=== PATIENT | male | born 1990 | race American Indian/Alaskan Native ===

== ENCOUNTER 2016-09-17 15:35 | Emergency (ER) | payer BC, OTHER ==
[2016-09-17] MEDS: DECADRON IM ONE (18:07)
[2016-09-17] MEDS: TORADOL IM ONE (18:08)
--- NOTE | 2016-09-17 18:53 | Emergency Department Report ---
Entered by JAELYN SOSA, acting as scribe for DANYA RUIZ PA. ED Rash HPI - HPI Chief Complaint: Skin Rash Stated Complaint: ABD PAIN/RASH Time Seen by Provider: 09/17/16 17:02 Duration: 2 Days Location: Abdomen (right side of abdomen that radiates to right flank at rash site), Other Suspected Cause: Unknown Rash Symptoms: Yes Blistering (painful rash), No Itching, No Facial Swelling, No Tongue/Oral Swelling, No Breathing Difficulties, No Choking Sensation, No Wheezing/Dyspnea, No Peeling, No Fever, No Lightheaded, No Malaise, No Myalgias Severity: moderate (6/10) Other History: 26 y/o male with a PMHx of eczema presents to the ED c/o blister- like rash on right side of abdomen that radiates to right flank that began 2 days ago. Patient states he had pain first to the affected areas before the onset of the rash. Rates associated pain a 6/10 in severity, which he describes as burninng and sharp in quality. Aggravated with movement and alleviated with nothing. Denies fever, chills, cough, nausea, vomiting, diarrhea, chest pain, and SOB. Denies having unprotected sex recently. Notes a PMHx of chicken pox. Took Motrin with some relief. NKDA. ED Review of Systems ROS: Stated complaint: ABD PAIN/RASH Other details as noted in HPI Comment: All other systems reviewed and negative Constitutional: denies: chills, diaphoresis, fever, weakness Eyes: denies: eye pain, eye discharge, vision change ENT: denies: ear pain, throat pain Respiratory: denies: cough, orthopnea, shortness of breath, SOB with exertion, SOB at rest, stridor, wheezing Cardiovascular: denies: chest pain, palpitations, dyspnea on exertion, orthopnea , edema, syncope, paroxysmal nocturnal dyspnea Endocrine: no symptoms reported Gastrointestinal: denies: abdominal pain, nausea, vomiting, diarrhea Musculoskeletal: denies: back pain, joint swelling, arthralgia, myalgia Skin: rash (right side of abdomen that radiates to right flank painful). denies : lesions, pruritus Neurological: denies: headache, weakness, numbness, paresthesias ED Past Medical Hx - Past Medical History Previous Medical History?: Yes Hx Asthma: Yes Additional medical history: eczema, - Surgical History Past Surgical History?: Yes Hx Appendectomy: Yes - Family History Family history: no significant - Social History Smoking Status: Current Some Day Smoker Substance Use Type: Alcohol Other Social History: single - Medications Home Medications: Home Medications Medication Instructions Recorded Confirmed Last Taken Type Acetaminophen/Codeine [Tylenol 1 tab PO Q6H PRN #12 tab 09/17/16 Unknown Rx /Codeine # 3 tab] Ibuprofen [Motrin] 600 mg PO Q8H PRN #15 tablet 09/17/16 Unknown Rx Valacyclovir HCl [Valtrex] 1,000 mg PO TID #21 tablet 09/17/16 Unknown Rx Rash Exam - Exam General: Vital signs noted. General: well nourished, well developed, 26 year old male in no acute distress and nontoxic in appearance HEENT: No Periorbital Edema, No Conjuctival Injection, No Chemosis, No Perioral Edema, No Tongue Edema, No Uvular Edema, No Compromised Airway, No Drooling Lungs: Yes Good Air Exchange (Clear to auscultation bilaterally. Normal work of breathing. No use of accessory muscles), No Wheezes, No Ronchi, No Stridor, No Cough, No Labored Respirations, No Retractions, No Use of Accessory Muscles, No Other Abnormal Lung Sounds Heart: Yes Regular (S1-S2, regular rate, regular rhythm), No Murmur Skin: Yes Tenderness (to affected area on right abdomen and rigth low back at paraspinal area.), Yes Erythema, Yes Other (vesicular rash on mid right abdomen and right mid lumbar paraspinal area ), No Urticarial Rash, No Maculopapular Rash, No Morbilliform rash, No Bulla(e), No Excoriations, No Weeping, No Edema, No Encrustations Other: Positive: Abdomen Normal (Soft, nontender to palpation in all quadrants, normal bowel sounds in all quadrants), Neurologic Normal, Musculoskeletal Normal (No CCE. +2 pulses. No neurovascular compromise) ED Course Vital Signs 09/17/16 16:45 Temperature 98.9 F Pulse Rate 77 Respiratory 17 Rate Blood Pressure 135/82 O2 Sat by Pulse 100 Oximetry - Reevaluation(s) Reevaluation #1: 09/17/16 18:41 She given Decadron 60 mg by mouth and Toradol 60 mg IM in emergency room for shingles. ED Medical Decision Making - Medical Decision Making ESTRELLA course:Pt report to emergency room report that he has rash to his right abdomen and right lower back that is painful and 6 out of 10. He said he started feeling pain and then a day later the rash appears. Denies any nausea or vomiting or fever or chills. Patient had chickenpox vaccine in the past and he said he does not have any medical problem away from asthma and eczema. He denies being immunocompromised. I discussed the patient that he has shingles and will be treated with antiviral medication. He voices understanding and is diagnosis and treatment plan. So discussed with him that he will need to have STD testing to include HIV to rule out immunocompromise diseases. Patient states that he is not currently sexually active but he has been in the past. Patient given Toradol 60 mg IM and Decadron 60 mg by mouth in emergency room. Patient discharged home with prescription for valacyclovir, Motrin and Tylenol 3. Patient does have a primary care physician so I discussed with him that he needs to follow-up at his primary care physician on Tuesday and he should avoid being around people and babies/elderly. Critical care attestation.: If time is entered above; I have spent that time in minutes in the direct care of this critically ill patient, excluding procedure time. ED Disposition Clinical Impression: Acute pain Shingles outbreak Qualifiers: Herpes zoster complications: without complications Qualified Code(s): B02.9 - Zoster without complications Disposition: DC-01 TO HOME OR SELFCARE Is pt being admited?: No Does the pt Need Aspirin: No Condition: Stable Instructions: Herpes Zoster (ED) Additional Instructions: Please avoid being around people that are , children less than 8 years old and elderly as this rash is very contagious and these age groups has low immune system Please practice good hand eye chain You are considered contagious until rash dries up Please go to [facility] on Tuesday or as they do free HIV testing. Please take medication as prescribed Do not take Tylenol No. 3 [address] driving or operating heavy machinery as this medication will cause drowsiness Prescriptions: Acetaminophen/Codeine [Tylenol /Codeine # 3 tab] 1 tab PO Q6H PRN #12 tab PRN Reason: Pain Ibuprofen [Motrin] 600 mg PO Q8H PRN #15 tablet PRN Reason: Pain Valacyclovir HCl [Valtrex] 1,000 mg PO TID #21 tablet Referrals: PRIMARY CARE, [Primary Care Provider] - 09/20/16 Forms: Work/School Release Form(ED) This documentation as recorded by the SHEILA carpenter JASMINE,accurately reflects the service I personally performed and the decisions made by ,DANYA RUIZ PA.
[2016-09-17 19:54] VITALS: BP 129/79
== END 2016-09-17 19:25 | disposition home or self-care (01) ==
LOC: ED 15:35
DX: B02.9 Zoster without complications (principal); R10.9 Unspecified abdominal pain; J45.909 Unspecified asthma, uncomplicated
CPT/HCPCS: 96372; 99282; J1100; J1885

== ENCOUNTER 2019-04-07 07:53 | Inpatient (IN) | payer BC ==
[2019-04-07] MEDS ORDERED: SODIUM CHLORIDE 0.9% 1000 ML 1,000 ML IV ONE (08:16)
[2019-04-07] MEDS ORDERED: PANTOPRAZOLE 40 MG INJ IV ONE (08:18)
--- NOTE | 2019-04-07 08:23 | Emergency Department Report ---
ED General Adult HPI - General Chief complaint: Abdominal Pain Stated complaint: PELIVIC PAIN/RECTAL BLEEDING Time Seen by Provider: 04/07/19 08:07 Source: patient Mode of arrival: Ambulatory Limitations: No Limitations - History of Present Illness Initial comments: This is a 29-year-old man who has a history of rectal carcinoma. He states that he had hemorrhoid surgery and they detected "cancer cells". He states he had another surgical procedure but he does not have a colostomy. After that, he received chemotherapy last treatment a week ago. He received radiation therapy with his last treatment yesterday. Patient states that he has passed "spots of blood" this morning. He felt weak like he might pass out earlier this morning. He does not specifically report fever or chills. He does have some rectal pain. I do not see any treatment here for rectal carcinoma in the EMR. Apparently the patient has been getting his treatment elsewhere. The patient denies ever receiving a transfusion of blood. On further assessment, the patient now admits that he is HIV positive. He also states that he was placed on a medication that starts with [place]. I am guessing this could be fluconazole. He states that he is being treated for a "infection". -: Gradual Location: abdomen (Rectal pain) Associated Symptoms: other (Hematochezia) - Related Data Previous Rx's Medication Instructions Recorded Last Taken Type Acetaminophen/Codeine [Tylenol 1 tab PO Q6H PRN #12 tab 09/17/16 Unknown Rx /Codeine # 3 tab] Ibuprofen [Motrin] 600 mg PO Q8H PRN #15 tablet 09/17/16 Unknown Rx Valacyclovir HCl [Valtrex] 1,000 mg PO TID #21 tablet 09/17/16 Unknown Rx ALBUTEROL Inhaler(NF) [VENTOLIN 1 puff IH Q4-6H PRN #1 inha 12/28/17 Unknown Rx Inhaler(NF)] Prednisone [predniSONE 10 mg 10 mg PO .TAPER #1 tab.ds.pk 12/28/17 Unknown Rx (6-Day Pack, 21 Tabs)] Allergies Allergy/AdvReac Type Severity Reaction Status Date / Time No Known Allergies Allergy Verified 09/17/16 16:43 ED Review of Systems ROS: Stated complaint: PELIVIC PAIN/RECTAL BLEEDING Other details as noted in HPI Constitutional: weakness. denies: chills, fever Eyes: denies: eye pain, eye discharge, vision change ENT: denies: ear pain, throat pain Respiratory: denies: cough, shortness of breath, wheezing Cardiovascular: denies: chest pain, palpitations Endocrine: no symptoms reported Gastrointestinal: hematochezia. denies: abdominal pain, nausea, diarrhea Genitourinary: denies: urgency, dysuria Musculoskeletal: denies: back pain, joint swelling, arthralgia Skin: denies: rash, lesions Neurological: denies: headache, weakness, paresthesias Psychiatric: denies: anxiety, depression Hematological/Lymphatic: denies: easy bleeding, easy bruising ED Past Medical Hx - Past Medical History Previous Medical History?: Yes Hx Asthma: Yes Additional medical history: rectal cancer - Surgical History Past Surgical History?: Yes Hx Appendectomy: Yes - Social History Smoking Status: Current Every Day Smoker Substance Use Type: None - Medications Home Medications: Home Medications Medication Instructions Recorded Confirmed Last Taken Type Acetaminophen/Codeine [Tylenol 1 tab PO Q6H PRN #12 tab 09/17/16 Unknown Rx /Codeine # 3 tab] Ibuprofen [Motrin] 600 mg PO Q8H PRN #15 tablet 09/17/16 Unknown Rx Valacyclovir HCl [Valtrex] 1,000 mg PO TID #21 tablet 09/17/16 Unknown Rx ALBUTEROL Inhaler(NF) [VENTOLIN 1 puff IH Q4-6H PRN #1 inha 12/28/17 Unknown Rx Inhaler(NF)] Prednisone [predniSONE 10 mg 10 mg PO .TAPER #1 tab.ds.pk 12/28/17 Unknown Rx (6-Day Pack, 21 Tabs)] ED Physical Exam - General Limitations: No Limitations General appearance: alert, other (Appears uncomfortable) - Head Head exam: Present: atraumatic, normocephalic - Eye Eye exam: Present: normal appearance. Absent: scleral icterus - ENT ENT exam: Present: mucous membranes moist - Neck Neck exam: Present: normal inspection - Respiratory Respiratory exam: Present: normal lung sounds bilaterally. Absent: respiratory distress - Cardiovascular Cardiovascular Exam: Present: regular rate, normal rhythm. Absent: systolic murmur, diastolic murmur, rubs, gallop - GI/Abdominal GI/Abdominal exam: Present: soft, normal bowel sounds. Absent: distended, tenderness, guarding, rebound, rigid - Rectal Rectal exam: Present: other (The patient has extensive breakdown in the perirectal and gluteal fold region with epidermal maceration. Examination of the anus was impossible secondary to pain. There was no evidence of any active bleeding. There does appear to be discharge.) - Extremities Exam Extremities exam: Present: normal inspection - Back Exam Back exam: Present: normal inspection - Neurological Exam Neurological exam: Present: alert, oriented X3, CN II-XII intact. Absent: motor sensory deficit - Psychiatric Psychiatric exam: Present: normal affect, normal mood - Skin Skin exam: Present: warm, dry, intact, normal color. Absent: rash ED Course Vital Signs 04/07/19 04/07/19 04/07/19 07:59 08:01 08:22 Temperature 97.7 F 98.1 F Pulse Rate 122 H 119 H Respiratory 18 18 Rate Blood Pressure 132/82 Blood Pressure 132/82 [Right] O2 Sat by Pulse 98 98 99 Oximetry 04/07/19 04/07/19 04/07/19 09:01 09:13 09:15 Temperature 98.4 F Pulse Rate 109 H 103 H Respiratory 21 12 Rate Blood Pressure 134/91 134/91 Blood Pressure [Right] O2 Sat by Pulse 98 100 Oximetry 04/07/19 04/07/19 10:30 12:20 Temperature Pulse Rate 98 H 88 Respiratory 13 19 Rate Blood Pressure 139/77 Blood Pressure 133/71 [Right] O2 Sat by Pulse 99 99 Oximetry - Reevaluation(s) Reevaluation #1: Patient referred to hospitalist 04/07/19 12:22 ED Medical Decision Making - Lab Data Result diagrams: 04/07/19 08:39 04/07/19 08:39 Laboratory Results - last 24 hr 04/07/19 04/07/19 04/07/19 08:39 08:39 08:39 WBC 4.6 RBC 3.29 L Hgb 10.9 L Hct 31.0 L MCV 94 MCH 33 H MCHC 35 H RDW 15.8 H Plt Count 69 L Add Manual Diff Complete Total Counted 100 Seg Neuts % (Manual) 86.0 H Band Neutrophils % 1.0 Lymphocytes % (Manual) 2.0 L Reactive Lymphs % (Man) 1.0 Monocytes % (Manual) 10.0 H Eosinophils % (Manual) 0 Basophils % (Manual) 0 Metamyelocytes % 0 Myelocytes % 0 Promyelocytes % 0 Blast Cells % 0 Nucleated RBC % Not Reportable Seg Neutrophils # Man 4.0 Band Neutrophils # 0.0 Lymphocytes # (Manual) 0.1 L Abs React Lymphs (Man) 0.0 Monocytes # (Manual) 0.5 Eosinophils # (Manual) 0.0 Basophils # (Manual) 0.0 Metamyelocytes # 0.0 Myelocytes # 0.0 Promyelocytes # 0.0 Blast Cells # 0.0 WBC Morphology Not Reportable Hypersegmented Neuts Not Reportable Hyposegmented Neuts Not Reportable Hypogranular Neuts Not Reportable Smudge Cells Not Reportable Toxic Granulation Not Reportable Toxic Vacuolation Not Reportable Dohle Bodies Not Reportable Pelger-Huet Anomaly Not Reportable Greer Rods Not Reportable Platelet Estimate Consistent w auto Clumped Platelets Not Reportable Plt Clumps, EDTA Not Reportable Large Platelets Not Reportable Giant Platelets Not Reportable Platelet Satelliting Not Reportable Plt Morphology Comment Not Reportable RBC Morphology Not Reportable Dimorphic RBCs Not Reportable Polychromasia Not Reportable Hypochromasia Not Reportable Poikilocytosis Not Reportable Anisocytosis Not Reportable Microcytosis Not Reportable Macrocytosis Not Reportable Spherocytes Not Reportable Pappenheimer Bodies Not Reportable Sickle Cells Not Reportable Target Cells 1+ Tear Drop Cells Not Reportable Ovalocytes Few Helmet Cells Not Reportable Dobson-Belle Rive Bodies Not Reportable [place] Rings Not Reportable Ammy Cells Not Reportable Bite Cells Not Reportable Crenated Cell Not Reportable Elliptocytes Not Reportable Acanthocytes (Spur) Not Reportable Rouleaux Not Reportable Hemoglobin C Crystals Not Reportable Schistocytes Not Reportable Malaria parasites Not Reportable Bridger Bodies Not Reportable Hem Pathologist Commnt No PT 12.5 INR 0.92 APTT 26.5 Sodium 136 L Potassium 3.8 Chloride 102.5 Carbon Dioxide 17 L Anion Gap 20 BUN 7 L Creatinine 0.7 L Estimated GFR > 60 BUN/Creatinine Ratio 10 Glucose 101 H Calcium 9.4 Magnesium Total Bilirubin 0.50 Direct Bilirubin < 0.2 Indirect Bilirubin < 0.3 AST 28 ALT 25 Alkaline Phosphatase 97 Total Protein 7.4 Albumin 3.8 L Albumin/Globulin Ratio 1.1 Lipase 10 L Blood Type Antibody Screen 04/07/19 04/07/19 08:39 08:40 WBC RBC Hgb Hct MCV MCH MCHC RDW Plt Count Add Manual Diff Total Counted Seg Neuts % (Manual) Band Neutrophils % Lymphocytes % (Manual) Reactive Lymphs % (Man) Monocytes % (Manual) Eosinophils % (Manual) Basophils % (Manual) Metamyelocytes % Myelocytes % Promyelocytes % Blast Cells % Nucleated RBC % Seg Neutrophils # Man Band Neutrophils # Lymphocytes # (Manual) Abs React Lymphs (Man) Monocytes # (Manual) Eosinophils # (Manual) Basophils # (Manual) Metamyelocytes # Myelocytes # Promyelocytes # Blast Cells # WBC Morphology Hypersegmented Neuts Hyposegmented Neuts Hypogranular Neuts Smudge Cells Toxic Granulation Toxic Vacuolation Dohle Bodies Pelger-Huet Anomaly Greer Rods Platelet Estimate Clumped Platelets Plt Clumps, EDTA Large Platelets Giant Platelets Platelet Satelliting Plt Morphology Comment RBC Morphology Dimorphic RBCs Polychromasia Hypochromasia Poikilocytosis Anisocytosis Microcytosis Macrocytosis Spherocytes Pappenheimer Bodies Sickle Cells Target Cells Tear Drop Cells Ovalocytes Helmet Cells Dobson-Belle Rive Bodies [place] Rings Ammy Cells Bite Cells Crenated Cell Elliptocytes Acanthocytes (Spur) Rouleaux Hemoglobin C Crystals Schistocytes Malaria parasites Bridger Bodies Hem Pathologist Commnt PT INR APTT Sodium Potassium Chloride Carbon Dioxide Anion Gap BUN Creatinine Estimated GFR BUN/Creatinine Ratio Glucose Calcium Magnesium 1.80 Total Bilirubin Direct Bilirubin Indirect Bilirubin AST ALT Alkaline Phosphatase Total Protein Albumin Albumin/Globulin Ratio Lipase Blood Type O NEGATIVE Antibody Screen Negative - Radiology Data Radiology results: report reviewed (No acute abnormality per radiologist) Critical care attestation.: If time is entered above; I have spent that time in minutes in the direct care of this critically ill patient, excluding procedure time. ED Disposition Clinical Impression: Rectal cancer, Thrombocytopenia, HIV positive Disposition: DC09 OP ADMIT IP TO THIS HOSP Is pt being admited?: No Does the pt Need Aspirin: No Condition: Stable Referrals: PRIMARY CARE, [Primary Care Provider] - 3-5 Days Time of Disposition: 12:23
[2019-04-07 09:06] LABS: Alanine Aminotransferase 25 units/L (7-56); Albumin 3.8 g/dL (3.9-5); BUN/Creatinine Ratio 10; Blood Urea Nitrogen 7 mg/dL (9-20); Calcium 9.4 mg/dL (8.4-10.2); Hemolysis Index 24
[2019-04-07 09:07] LABS: Bilirubin,Direct < 0.2 mg/dL (0-0.2); INR 0.92 (0.87-1.13); Partial Thromboplastin Time 26.5 Sec. (24.2-36.6)
[2019-04-07 09:13] LABS: Hemoglobin 10.9 gm/dl (11.8-15.2); Mean Corpuscular HGB Conc 35 % (32-34); Mean Corpuscular Volume 94 fl (84-94); Red Blood Count 3.29 M/mm3 (3.65-5.03); Red Cell Distribution Width 15.8 % (13.2-15.2)
[2019-04-07 09:15] LABS: Platelet Count 69 K/mm3 (140-440)
[2019-04-07] MEDS ORDERED: MORPHINE 2 MG/1 ML INJ IV ONE (09:20)
[2019-04-07] MEDS ORDERED: ONDANSETRON 4 MG/2 ML INJ IV ONE (09:20)
[2019-04-07] MEDS ORDERED: PIPERACILLIN/TAZOBACTAM 3.375 3.375 GM/50 ML BAG IV ONE (09:20)
--- NOTE | 2019-04-07 09:57 | XRay Report ---
CHEST 1 VIEW INDICATION: hypertension. COMPARISON: June 27, 2008 FINDINGS: SUPPORT DEVICES: Central venous line has tip in superior vena cava HEART / MEDIASTINUM: No significant abnormality. LUNGS / PLEURA: No significant pulmonary or pleural abnormality. No pneumothorax. ADDITIONAL FINDINGS: IMPRESSION: 1. No acute cardiopulmonary disease Signer Name: [place] Dominique MD Signed: 04/07/2019 9:53 AM Workstation Name: [email or web address]
[2019-04-07 10:10] LABS: Basophils % (Manual) 0 % (0.0-1.8); Eosinophils % (Manual) 0 % (0.0-4.3); Ovalocytes Few; Platelet Estimate Consistent w Auto; Target Cells 1+; Total Cells Counted 100
--- NOTE | 2019-04-07 11:47 | Cat Scan Report ---
CT ABDOMEN AND PELVIS WITH CONTRAST INDICATION / CLINICAL INFORMATION: Rectal cancer question proctitis. HIV positive. TECHNIQUE: Axial CT images were obtained through the abdomen and pelvis after 100 cc Omnipaque 300 milligrams pe rcent IV contrast. All CT scans at this location are performed using CT dose reduction for ALARA by means of automated exposure control. COMPARISON: None available. FINDINGS: LOWER CHEST: No significant abnormality. LIVER: No significant abnormality. GALLBLADDER: No significant abnormality. BILE DUCTS: No significant abnormality. PANCREAS: No significant abnormality. SPLEEN: No significant abnormality. ADRENALS: No significant abnormality. RIGHT KIDNEY and URETER: No significant abnormality. LEFT KIDNEY and URETER: No significant abnormality. STOMACH and SMALL BOWEL: No significant abnormality. COLON: Questionable mild thickening involving the rectum without discrete mass APPENDIX: Not identified. PERITONEUM: No free fluid. No free air. No fluid collection. LYMPH NODES: No significant adenopathy. AORTA and ARTERIES: No significant abnormality. IVC and VEINS: No significant abnormality. URINARY BLADDER: No significant abnormality. REPRODUCTIVE ORGANS: No significant abnormality. ADDITIONAL FINDINGS: None. SKELETAL SYSTEM: No significant abnormality. IMPRESSION: 1. No significant abnormality. Please see comments Signer Name: [place] Dominique MD Signed: 04/07/2019 11:42 AM Workstation Name: [email or web address]
[2019-04-07 11:58] LABS: Bilirubin,Urine NEG (Negative); Blood,Urine NEG (Negative); Color,Urine Yellow (Yellow); Mucus,Urine FEW /HPF; Protein,Urine <15 mg/dL mg/dL (Negative)
--- NOTE | 2019-04-07 12:16 | History and Physical Report ---
History of Present Illness Chief complaint: My butt hurts a lot History of present illness: 29 YO Male with Rectal Cancer S/P Radiation Therapy, HIV infection, Obesity, Nicotine Dependence presents to ED for evaluation. Patient states that he has experienced perirectal pain over the past 4 days with worsening symptoms over the past 2 days. Patient states that his pain is currently 610/10, initially intermittent but has become more constant, worsened with defecation, worsened with sitting, relieved by lying on his side. Patient transported to [facility] via private vehicle for further care and evaluation. Patient seen and evaluated in the emergency department. Lab and imaging studies reviewed. Patient found to have perirectal cellulitis. Patient treated with IV antibiotic therapy and pain control. Patient placed in observation status and admitted to medical floor for further care and reevaluation. Wound care consult placed in the emergency department. Patient denies fever, chills, chest pain, palpitations, bright red blood per rectum, trauma, known ill contacts, skin rash. No prior admission for review. All medication listed at time of admission has been reconciled. Past History Past Medical History: cancer, HIV/AIDS, other (See HPI) Past Surgical History: appendectomy Social history: single, smoking. denies: alcohol abuse, prescription drug abuse Family history: hypertension Medications and Allergies Allergies Allergy/AdvReac Type Severity Reaction Status Date / Time No Known Allergies Allergy Verified 09/17/16 16:43 Home Medications Medication Instructions Recorded Confirmed Last Taken Type Valacyclovir HCl [Valtrex] 1,000 mg PO TID #21 tablet 09/17/16 04/07/19 Unknown Rx ALBUTEROL Inhaler(NF) [VENTOLIN 1 puff IH Q4-6H PRN #1 inha 12/28/17 04/07/19 Unknown Rx Inhaler(NF)] Abacavir/Dolutegravir/Lamivudi 1 each PO QDAY 04/07/19 04/07/19 Unknown History [Triumeq 600-50-300 mg Tablet] Atazanavir Sulfate [Reyataz] 300 mg PO QDAY 04/07/19 04/07/19 Unknown History Ritonavir [Norvir] 100 mg PO QDAY 04/07/19 04/07/19 Unknown History oxyCODONE /ACETAMINOPHEN [Percocet 1 tab PO Q6HR PRN 04/07/19 04/07/19 Unknown History [id number]] Review of Systems Constitutional: no weight loss, no weight gain, no fever, no chills Ears, nose, mouth and throat: no ear pain, no ear discharge, no tinnitis, no decreased hearing, no nose pain Cardiovascular: no chest pain, no orthopnea, no palpitations, no rapid/irregular heart beat, no edema Respiratory: no cough, no cough with sputum, no excessive sputum, no hemoptysis, no shortness of breath Gastrointestinal: no nausea, no vomiting, no diarrhea, no constipation, no change in bowel habits Genitourinary Male: no hematuria, no flank pain, no discharge, no urinary frequency, no urinary hesitancy Musculoskeletal: no neck stiffness, no neck pain, no shooting arm pain, no arm numbness/tingling, no low back pain, no shooting leg pain Integumentary: no rash, no pruritis, no redness, no sores, no wounds Neurological: no head injury, no transient paralysis, no paralysis, no weakness, no parathesias, no numbness, no tingling Psychiatric: no anxiety, no memory loss, no change in sleep habits, no sleep disturbances, no insomnia, no change in appetite Endocrine: no cold intolerance, no heat intolerance, no polyphagia, no michael ydipsia Hematologic/Lymphatic: no easy bruising, no easy bleeding, no lymphadenopathy, no lymphedema Allergic/Immunologic: no urticaria, no allergic rhinitis, no wheezing, no persistent infections, no anaphylaxis Exam - Constitutional Vitals: Temp Pulse Resp BP Pulse Ox 98.4 F 109 H 21 134/91 98 04/07/19 09:13 04/07/19 09:01 04/07/19 09:01 04/07/19 09:01 04/07/19 09:01 General appearance: Present: mild distress - EENT Eyes: Present: PERRL ENT: hearing intact, clear oral mucosa - Neck Neck: Present: supple, normal ROM - Respiratory Respiratory effort: normal Respiratory: bilateral: CTA - Cardiovascular Heart Sounds: Present: S1 & S2. Absent: rub, click - Extremities Extremities: pulses symmetrical, No edema Peripheral Pulses: within normal limits - Abdominal General gastrointestinal: Present: soft, non-tender, non-distended, normal bowel sounds Male genitourinary: Present: normal - Rectal Rectal Exam: tenderness, other (Perirectal erythema, excoriation of skin around the anus.) - Integumentary Integumentary: Present: clear, warm, dry - Musculoskeletal Musculoskeletal: gait normal, strength equal bilaterally - Psychiatric Psychiatric: appropriate mood/affect, intact judgment & insight - Neurologic Neurologic: CNII-XII intact, moves all extremities Results - Labs CBC & Chem 7: 04/07/19 08:39 04/07/19 08:39 Labs: Abnormal lab results 04/07/19 04/07/19 04/07/19 Range/Units 08:39 08:39 Unknown RBC 3.29 L (3.65-5.03) M/mm3 Hgb 10.9 L (11.8-15.2) gm/dl Hct 31.0 L (35.5-45.6) % MCH 33 H (28-32) pg MCHC 35 H (32-34) % RDW 15.8 H (13.2-15.2) % Plt Count 69 L (140-440) K/mm3 Seg Neuts % (Manual) 86.0 H (40.0-70.0) % Lymphocytes % (Manual) 2.0 L (13.4-35.0) % Monocytes % (Manual) 10.0 H (0.0-7.3) % Lymphocytes # (Manual) 0.1 L (1.2-5.4) K/mm3 Sodium 136 L (137-145) mmol/L Carbon Dioxide 17 L (22-30) mmol/L BUN 7 L (9-20) mg/dL Creatinine 0.7 L (0.8-1.5) mg/dL Glucose 101 H (75-100) mg/dL Albumin 3.8 L (3.9-5) g/dL Lipase 10 L (13-60) units/L Ur Specific [place] 1.057 H (1.003-1.030) Assessment and Plan - Patient Problems (1) Perirectal cellulitis Current Visit: Yes Status: Acute Plan to address problem: CBC, CMP, CT scan abdomen and pelvis, IV antibiotic therapy, wound care, pain control. (2) HIV (human immunodeficiency virus infection) Current Visit: Yes Status: Acute Qualifiers: HIV symptom status: unspecified Qualified Code(s): B20 - Human immunodeficiency virus [HIV] disease Plan to address problem: Supportive care, outpatient ID follow-up. (3) Nicotine dependence unspecified, with withdrawal Current Visit: Yes Status: Acute Qualifiers: Nicotine product type: cigarettes Qualified Code(s): F17.213 - Nicotine dependence, cigarettes, with withdrawal Plan to address problem: Smoking cessation counseling, behavior change counseling, supportive care, +15 minutes (4) Rectal cancer Current Visit: Yes Status: Acute Plan to address problem: Status post radiation therapy, outpatient radiation oncology follow-up, supportive care. (5) DVT prophylaxis Current Visit: Yes Status: Acute Plan to address problem: SCD to bilateral lower extremities while in bed, prophylactic heparin.
[2019-04-07] MEDS ORDERED: ALBUTEROL 2.5 MG/3 ML NEBU IH PRN (12:24)
[2019-04-07] MEDS ORDERED: ONDANSETRON 4 MG/2 ML INJ IV PRN (12:24)
[2019-04-07] MEDS ORDERED: ACETAMINOPHEN 325 MG TAB PO PRN (12:24)
[2019-04-07] MEDS ORDERED: ACETAMINOPHEN W/CODEINE 300-30 MG TAB PO PRN (12:25)
[2019-04-07] MEDS ORDERED: IBUPROFEN 600 MG TAB PO PRN (12:25)
[2019-04-07] MEDS ORDERED: VANCOMYCIN PHARMACY TO DOSE IV SCH (14:00)
[2019-04-07] MEDS ORDERED: VALACYCLOVIR HCL 1000 MG PO SCH (14:00)
[2019-04-07] MEDS ORDERED: VANCOMYCIN 2,000 MG in SODIUM CHLORIDE 0.9% 500 ML 500 ML IV ONE (15:00)
[2019-04-07] MEDS: MORPHINE 2 MG/1 ML INJ IV PRN ×3 (15:32→22:34)
[2019-04-07] MEDS: HEPARIN 5,000 UNIT/1 ML VIAL SUB-Q SCH (21:01)
[2019-04-08] MEDS: MORPHINE 2 MG/1 ML INJ IV PRN ×4 (05:10→21:12)
[2019-04-08] MEDS: VANCOMYCIN 1,500 MG in SODIUM CHLORIDE 0.9% 500 ML 500 ML IV SCH ×2 (05:18→14:34)
[2019-04-08] MEDS: SODIUM CHLORIDE 0.45% 1000 ML 1,000 ML IV SCH (10:02)
[2019-04-08] MEDS: HEPARIN 5,000 UNIT/1 ML VIAL SUB-Q SCH ×2 (10:03→21:13)
[2019-04-08] MEDS: LIDOCAINE 5% OINTMENT 35 GM TP SCH ×2 (10:50→17:32)
--- NOTE | 2019-04-08 15:26 | Progress Note ---
Assessment and Plan / Perirectal cellulitis cont IV antibiotic therapy, wound care, pain control wound cx growing staph aureus - final sensitivity pending consult ID, follow wound care recommendation /HIV (human immunodeficiency virus infection) Supportive care, outpatient ID follow-up. cont current HIV meds / Nicotine dependence Smoking cessation counseling and behavior change counseling done, supportive care, / Rectal cancer Status post radiation therapy, outpatient radiation oncology follow-up, supportive care. / DVT prophylaxis SCD to bilateral lower extremities while in bed, prophylactic heparin. Subjective Date of service: 04/08/19 Interval history: patient seen and examined c/o severe perirectal pain , requiring iv pain meds wound cx growing staph aureus - final sensitivity pending Objective - Exam Narrative Exam: General appearance: Present: mild distress - EENT Eyes: Present: PERRL ENT: hearing intact, clear oral mucosa - Neck Neck: Present: supple, normal ROM - Respiratory Respiratory effort: normal Respiratory: bilateral: CTA - Cardiovascular Heart Sounds: Present: S1 & S2. Absent: rub, click - Extremities Extremities: pulses symmetrical, No edema Peripheral Pulses: within normal limits - Abdominal General gastrointestinal: Present: soft, non-tender, non-distended, normal bowel sounds Male genitourinary: Present: normal - Rectal Rectal Exam: tenderness, other (Perirectal erythema, excoriation of skin around the anus.) - Integumentary Integumentary: Present: clear, warm, dry - Musculoskeletal Musculoskeletal: gait normal, strength equal bilaterally - Psychiatric Psychiatric: appropriate mood/affect, intact judgment & insight - Neurologic Neurologic: CNII-XII intact, moves all extremities - Constitutional Vitals: Vital Signs - 12hr 04/08/19 04:56 Temperature 97.9 F Pulse Rate 96 H Respiratory 18 Rate Blood Pressure 135/78 O2 Sat by Pulse 98 Oximetry - Labs CBC & Chem 7: 04/07/19 08:39 04/07/19 08:39
[2019-04-09] MEDS: LIDOCAINE 5% OINTMENT 35 GM TP SCH ×4 (00:43→18:03)
[2019-04-09] MEDS: VANCOMYCIN 1,500 MG in SODIUM CHLORIDE 0.9% 500 ML 500 ML IV SCH (02:37)
[2019-04-09] MEDS: HEPARIN 5,000 UNIT/1 ML VIAL SUB-Q SCH ×2 (09:18→21:00)
[2019-04-09] MEDS ORDERED: oxyCODONE /ACETAMINOPHEN 5-325MG TAB PO PRN (10:06)
--- NOTE | 2019-04-09 11:43 | Consultation ---
History of Present Illness - Reason for Consult Consult date: 04/09/19 perirectal cellulitis Requesting physician: GENE MENJIVAR - History of Present Illness 29 y/o male with history of HIV since 2016, sees Dr Per Moses at [facility] last time in June 2018, [id number] in Dec 2017, [id number] on 07/03/2018 on reyataz/norvir/epzicom stopped 3 weeks ago because he run out the prescription, previous syphilis treated, chronic anal warts, previous smoking abuse and EOTH abuse, diagnosed with rectal carcinoma in Dec 2018 s/p RT x 6 weeks and chemo last time last week via port, sees Dr Arnie Willingham at [facility] (onc) and Dr Segovia at [facility] (colorectal), admitted on 04/07/2019 due to worsening perirectal pain and drainage over several weeks however pain was meg re 4 days before admission. Pain was 8-10 out 10. Worsened with defecation and activity. He reported this to his oncologist and recommended sitz bath. Denies genital herpes. Denies fever, chills, N/V/D. Reports 10L weight loss in 2 weeks. In the ED, temp 97.7, HR 122, BP 132/82, WBC 4.6, UA negative. Blood culture 04/07/2019 no growth today. Buttocks culture 04/07/[address] abd No free fluid. No free air. No fluid collection. ID consulted for perianal cellulitis. Review of Systems: Bold if positive, otherwise negative General: fevers, chills, rigors +weight loss 10L HEENT: visual disturbance, diplopia, eye pain Respiratory: cough, sputum, hemoptysis, shortness of breath Cardiovascular: chest pain, syncope Gastrointestinal: nausea, vomiting, diarrhea, abdominal pain +perianal pain Genitourinary: dysuria, hematuria, flank pain Musculoskeletal: neck pain, back pain, joint pain, edema Neurologic: headaches, seizures Hematologic: easy bruising or bleeding Endocrine: night sweats, acute weight loss Skin: rash, jaundice, redness Psychiatric: suicidal, homicidal ideation Past History Past Medical History: cancer, HIV/AIDS, other (See HPI) Past Surgical History: appendectomy Social history: single, smoking. denies: alcohol abuse, prescription drug abuse Family history: hypertension Medications and Allergies Allergies Allergy/AdvReac Type Severity Reaction Status Date / Time No Known Allergies Allergy Verified 09/17/16 16:43 Home Medications Medication Instructions Recorded Confirmed Last Taken Type Valacyclovir HCl [Valtrex] 1,000 mg PO TID #21 tablet 09/17/16 04/07/19 Unknown Rx ALBUTEROL Inhaler(NF) [VENTOLIN 1 puff IH Q4-6H PRN #1 inha 12/28/17 04/07/19 Unknown Rx Inhaler(NF)] Abacavir/Dolutegravir/Lamivudi 1 each PO QDAY 04/07/19 04/07/19 Unknown History [Triumeq 600-50-300 mg Tablet] Atazanavir Sulfate [Reyataz] 300 mg PO QDAY 04/07/19 04/07/19 Unknown History Ritonavir [Norvir] 100 mg PO QDAY 04/07/19 04/07/19 Unknown History oxyCODONE /ACETAMINOPHEN [Percocet 1 tab PO Q6HR PRN 04/07/19 04/07/19 Unknown History 5/325] Active Meds: Active Medications Acetaminophen (Tylenol) 650 mg PO Q4H PRN PRN Reason: Pain MILD(1-3)/Fever >100.5/BATES Acetaminophen/Codeine Phosphate (Tylenol #3) 1 tab PO Q6H PRN PRN Reason: Pain, Mild (1-3) Albuterol (Proventil) 2.5 mg IH Q4HRT PRN PRN Reason: Shortness Of Breath Heparin Sodium (Porcine) (Heparin) 5,000 unit SUB-Q Q12HR JEAN-PAUL Last Admin: 04/09/19 09:18 Dose: 5,000 unit Documented by: Sodium Chloride (Nacl 0.45% 1000 Ml) 1,000 mls @ 42 mls/hr IV DIRECT JEAN-PAUL Last Admin: 04/08/19 10:02 Dose: 42 mls/hr Documented by: Vancomycin HCl 1,500 mg/ (Sodium Chloride) 530 mls @ 333.333 mls/hr IV Q12H JEAN-PAUL Last Admin: 04/09/19 02:37 Dose: 333.333 mls/hr Documented by: Lidocaine (Xylocaine Topical 5%) 1 applic TP Q6H JEAN-PAUL Last Admin: 04/09/19 06:42 Dose: Not Given Documented by: Lidocaine HCl (Butt Paste/Lidocaine) 1 applic TP BID [facility] Morphine Sulfate (Morphine) 2 mg IV Q3H PRN PRN Reason: Pain , Severe (7-10) Last Admin: 04/08/19 21:12 Dose: 2 mg Documented by: Ondansetron HCl (Zofran) 4 mg IV Q8H PRN PRN Reason: Nausea And Vomiting Oxycodone/Acetaminophen (Percocet 5/325) 1 tab PO Q6H PRN PRN Reason: Pain, Moderate (4-6) Sodium Chloride (Sodium Chloride Flush Syringe 10 Ml) 10 ml IV BID [facility] Last Admin: 04/08/19 21:14 Dose: 10 ml Documented by: Sodium Chloride (Sodium Chloride Flush Syringe 10 Ml) 10 ml IV PRN PRN PRN Reason: LINE FLUSH Physical Examination - Physical Exam Narrative exam: Constitutional: alert in NAD pleasant Head, Ears, Nose: Normocephalic, atraumatic. External ears, nose normal Oral: Clear OP Neck: no JVD no masses Cardiovascular: RRR Respiratory:CTA maverick GI: Soft, non-tender; bowel sounds normal. No peritoneal signs. Musculoskeletal: no edema, +clubbing Skin:+extensive perianal sloughing with erythema, tenderness and scattered ulcers Hem/Lymphatic: No palpable cervical or supraclavicular nodes. No lymphangitis Psych: no agitated Neurological: alert oriented moving all extremities - Constitutional Vitals: Vital Signs Temp Pulse Resp BP Pulse Ox 98.5 F 72 16 123/72 98 04/09/19 05:36 04/09/19 05:36 04/09/19 05:36 04/09/19 05:36 04/09/19 05:36 Temperature -Last 24 Hours Temperature 98.5 F Temperature 98.0 F Temperature 98.4 F Temperature 98.5 F Results - Labs CBC & Chem 7: 04/07/19 08:39 04/07/19 08:39 Assessment and Plan Cultures: Blood culture 04/08/2019 no growth today Assessment/plan: 29 y/o male with history of HIV since 2016,previous syphilis treated, chronic anal warts, previous smoking abuse and EOTH abuse, diagnosed with rectal carcinoma in Dec 2018 s/p RT x 6 weeks and chemo last time last week admitted on 04/07/2019 due to worsening perirectal pain and drainage over several weeks however pain was severe 4 days before admission: #Likely Radiation proctitis: due to recent RT. Other possibilities herpes +/- bacterial superinfection less likely. Buttocks culture 04/07/2019 MSSA. ?infection versus likely skin colonizer. #HIV infection: sees Dr Per Moses at [facility] last time in June 2018, [id number] in Dec 2017, [id number] on 07/03/2018 on reyataz/norvir/epzicom stopped 3 weeks ago because he run out the prescription, #Rectal cancer: diagnosed with rectal carcinoma in Dec 2018 s/p RT x 6 weeks and chemo last time last week,sees Dr Arnie Willingham at [facility] (onc) and Dr Segovia at [facility] (colorectal) . CT abd No free fluid. No free air. No fluid collection. ID consulted for perianal cellulitis. Recommendations: Supportive management with lidocaine for local pain Obtain Cd4/VL/HIV genotype Educated about importance of not missing his ART - will start today TAF/Emtriva/dolutegravir inpatient and start Biktarvy 1 tab QD He is requesting transferring his HIV care close home in [place]. Stop vancomycin Start unasyn for now Start valtrex 1 gm PO BID total 7 days Anticipate to discharge on Biktarvy 1 tab QDAY (please provide 1 month) until seeing in HIV clinic, augmentin 875 mg po bid and valtrex 1 gm PO bid total 7 days till 04/21/2019 HIV clinic in 2 weeks Needs to see his cancer providers Dr Arnie Willingham (onc) and Dr Segovia at [facility] (colorectal) at [facility] jared Will follow MD Giselle Patricio [facility])
--- NOTE | 2019-04-09 12:47 | Progress Note ---
Assessment and Plan / Perirectal cellulitis cont IV antibiotic therapy, wound care, pain control wound cx growing staph aureus - MSSA consulted ID, follow wound care recommendation /HIV (human immunodeficiency virus infection) Supportive care, outpatient ID follow-up. cont current HIV meds / Nicotine dependence Smoking cessation counseling and behavior change counseling done, supportive care, / Rectal cancer Status post radiation therapy, outpatient radiation oncology follow-up, supportive care. / DVT prophylaxis SCD to bilateral lower extremities while in bed, prophylactic heparin. Disposition: possible d/c tomorrow if pain under control Subjective Date of service: 04/09/19 Interval history: patient seen and examined c/o perirectal pain and improved slightly, but still having difficulty to ambulate and to use restroom wound cx growing staph aureus - had wound care eval today Objective - Exam Narrative Exam: General appearance: Present: mild distress - EENT Eyes: Present: PERRL ENT: hearing intact, clear oral mucosa - Neck Neck: Present: supple, normal ROM - Respiratory Respiratory effort: normal Respiratory: bilateral: CTA - Cardiovascular Heart Sounds: Present: S1 & S2. Absent: rub, click - Extremities Extremities: pulses symmetrical, No edema Peripheral Pulses: within normal limits - Abdominal General gastrointestinal: Present: soft, non-tender, non-distended, normal bowel sounds Male genitourinary: Present: normal - Rectal Rectal Exam: tenderness, other (Perirectal erythema, excoriation of skin around the anus.) - Integumentary Integumentary: Present: clear, warm, dry - Musculoskeletal Musculoskeletal: gait normal, strength equal bilaterally - Psychiatric Psychiatric: appropriate mood/affect, intact judgment & insight - Neurologic Neurologic: CNII-XII intact, moves all extremities - Constitutional Vitals: Vital Signs - 12hr 04/09/19 05:36 Temperature 98.5 F Pulse Rate 72 Respiratory 16 Rate Blood Pressure 123/72 O2 Sat by Pulse 98 Oximetry - Labs CBC & Chem 7: 04/07/19 08:39 04/07/19 08:39
[2019-04-09] MEDS: BUTT PASTE 50 APPLIC/100 GM JAR TP SCH (14:10)
[2019-04-09] MEDS: valACYclovir 500 MG TAB PO SCH ×2 (14:14→21:02)
[2019-04-09] MEDS: SODIUM CHLORIDE 0.45% 1000 ML 1,000 ML IV SCH (14:16)
[2019-04-09] MEDS: AMPICILLIN/SULBACTA 3GM/100ML 3 GM/100 ML BAG IV SCH (15:01)
[2019-04-09] MEDS: TENOFOVIR 300 MG TAB PO SCH (16:37)
[2019-04-09] MEDS: DOLUTEGRAVIR 50 MG TAB PO SCH (16:37)
[2019-04-09] MEDS: EMTRICITABINE 200 MG CAP PO SCH (16:37)
[2019-04-09] MEDS: MORPHINE 2 MG/1 ML INJ IV PRN (18:03)
[2019-04-09] MEDS ORDERED: IBUPROFEN 600 MG TAB PO PRN (20:12)
[2019-04-10] MEDS: AMPICILLIN/SULBACTA 3GM/100ML 3 GM/100 ML BAG IV SCH ×3 (00:25→12:47)
[2019-04-10] MEDS: LIDOCAINE 5% OINTMENT 35 GM TP SCH ×3 (00:25→12:53)
[2019-04-10] MEDS: BUTT PASTE 50 APPLIC/100 GM JAR TP SCH ×2 (00:26→12:53)
[2019-04-10 06:21] VITALS: BP 132/72
[2019-04-10] MEDS: MORPHINE 2 MG/1 ML INJ IV PRN (09:25)
[2019-04-10] MEDS: EMTRICITABINE 200 MG CAP PO SCH (09:25)
[2019-04-10] MEDS: TENOFOVIR 300 MG TAB PO SCH (09:26)
[2019-04-10] MEDS: DOLUTEGRAVIR 50 MG TAB PO SCH (09:26)
[2019-04-10] MEDS: valACYclovir 500 MG TAB PO SCH (09:26)
[2019-04-10] MEDS: HEPARIN 5,000 UNIT/1 ML VIAL SUB-Q SCH (09:26)
--- NOTE | 2019-04-10 10:26 | Progress Note ---
Assessment and Plan Cultures: Blood culture 04/08/2019 no growth today Wound culture 04/07/2019 MSSA Assessment/plan: 29 y/o male with history of HIV since 2017,previous syphilis treated, chronic anal warts, previous smoking abuse and EOTH abuse, diagnosed with rectal carcinoma in Dec 2018 s/p RT x 6 weeks and chemo last time last week admitted on 04/07/2019 due to worsening perirectal pain and drainage over several weeks however pain was severe 4 days before admission: #Likely Radiation proctitis: due to recent RT. Other possibilities herpes +/- bacterial superinfection less likely. Buttocks culture 04/07/2019 MSSA. ?infection versus likely skin colonizer. #HIV infection: sees Dr Per Moses at [facility] last time in June 2018, [id number] in Dec 2017, GL=[id number] on 07/03/2018 on reyataz/norvir/epzicom stopped 3 weeks ago because he run out the prescription, #Rectal cancer: diagnosed with rectal carcinoma in Dec 2018 s/p RT x 6 weeks and chemo last time last week,sees Dr Arnie Willingham at [facility] (onc) and Dr Segovia at [facility] (colorectal) . CT abd No free fluid. No free air. No fluid collection. ID consulted for perianal cellulitis. Recommendations: ok to d/c home and f/u cancer providers Dr Arnie Willingham (onc) and Dr Segovia at [facility] (colorectal) at [facility] on 04/12/2019 Supportive management with lidocaine for local pain f/u CD4/VL/HIV genotype at HIV office Educated about importance of not missing his ART - continue TAF/Emtriva/dolutegravir inpatient and start Biktarvy 1 tab QD at home He is requesting transferring his HIV care close home in [place]. He has an apt with our HIV office in 1 week. Legal Cashier notified. Continue unasyn for now Continue valtrex 1 gm PO BID total 7 days Anticipate to discharge on Biktarvy 1 tab QDAY (please provide 1 month) until seeing in HIV clinic, augmentin 875 mg po bid and valtrex 1 gm PO bid total 7 days till 04/21/2019 Will follow MD Clarissa Patric[facility] Subjective Date of service: 04/10/19 Principal diagnosis: perianal skin radiation Interval history: Feels some better, still perianal pain 6 of 10, no fever, no N/V/D Objective - Exam Narrative Exam: Constitutional: alert in NAD pleasant Head, Ears, Nose: Normocephalic, atraumatic. External ears, nose normal Oral: Clear OP Neck: no JVD no masses Cardiovascular: RRR Respiratory:CTA maverick GI: Soft, non-tender; bowel sounds normal. No peritoneal signs. Musculoskeletal: no edema, +clubbing Skin:+extensive perianal sloughing with erythema, tenderness and scattered ulcers (examined yesterday) Hem/Lymphatic: No palpable cervical or supraclavicular nodes. No lymphangitis Psych: no agitated Neurological: alert oriented moving all extremities - Constitutional Vitals: Vital Signs Temp Pulse Resp BP Pulse Ox 98.7 F 71 18 132/72 99 04/10/19 05:36 04/10/19 05:36 04/10/19 05:36 04/10/19 05:36 04/10/19 05:36 Temperature -Last 24 Hours Temperature 98.7 F Temperature 98.6 F Temperature 98.7 F Temperature 98.4 F - Labs CBC & Chem 7: 04/07/19 08:39 04/07/19 08:39
--- NOTE | 2019-04-10 11:49 | Discharge Summary ---
Providers - Providers Date of Admission: 04/09/19 10:00 Date of discharge: 04/10/19 Attending physician: GENE MENJIVAR 04/07/19 13:54 Consult to Wound/ET Nurse [CONS] Routine Reason For Exam: wound eval 04/08/19 15:25 Consult to Physician [CONS] Routine Comment: Consulting Provider: KIRAN STERN Physician Instructions: Reason For Exam: perirectal cellulitis Primary care physician: [employer] Hospitalization Condition: Stable Pertinent studies: CXR abdomen/pelvis CT Hospital course: Discharge diagnosis and mx: / Perirectal cellulitis ordered IV antibiotic therapy, wound care, pain control wound cx growing staph aureus - MSSA consulted ID, recommended to d/c with augmentin 875 mg po bid and valtrex 1 gm PO bid total 7 days till 04/21/2019 /HIV (human immunodeficiency virus infection) Supportive care, outpatient ID follow-up. cont current HIV meds, but was out of meds for weeks discharge on Biktarvy 1 tab QDAY (please provide 1 month) until seeing in HIV clinic / Nicotine dependence Smoking cessation counseling and behavior change counseling done, supportive care, / Rectal cancer Status post radiation therapy, outpatient radiation oncology follow-up, supportive care. / DVT prophylaxis SCD to bilateral lower extremities while in bed, prophylactic heparin. Disposition: DC-30 STILL A PATIENT Time spent for discharge: 34 minutes Core Measure Documentation - Palliative Care Palliative Care/ Comfort Measures: Not Applicable - Core Measures Any of the following diagnoses?: none Exam - Physical Exam Narrative exam: General appearance: Present: mild distress - EENT Eyes: Present: PERRL ENT: hearing intact, clear oral mucosa - Neck Neck: Present: supple, normal ROM - Respiratory Respiratory effort: normal Respiratory: bilateral: CTA - Cardiovascular Heart Sounds: Present: S1 & S2. Absent: rub, click - Extremities Extremities: pulses symmetrical, No edema Peripheral Pulses: within normal limits - Abdominal General gastrointestinal: Present: soft, non-tender, non-distended, normal bowel sounds Male genitourinary: Present: normal - Rectal Rectal Exam: tenderness, other (Perirectal erythema, excoriation of skin around the anus.) - Integumentary Integumentary: Present: clear, warm, dry - Musculoskeletal Musculoskeletal: gait normal, strength equal bilaterally - Psychiatric Psychiatric: appropriate mood/affect, intact judgment & insight - Neurologic Neurologic: CNII-XII intact, moves all extremities - Constitutional Vitals: Temp Pulse Resp BP Pulse Ox 98.7 F 71 18 132/72 99 04/10/19 05:36 04/10/19 05:36 04/10/19 05:36 04/10/19 05:36 04/10/19 05:36 Plan Activity: advance as tolerated Weight Bearing Status: Weight Bear as Tolerated Diet: low fat, low salt Wound: per wound nurse instructions Follow up with: PRIMARY CARE, [Primary Care Provider] - 3-5 Days Prescriptions: Amoxicillin/Potassium Clav [Augmentin 875-125 Tablet] 1 each PO BID #14 tablet Bictegrav/Emtricit/Tenofov Ala [Biktarvy 50-200-25 mg (Nf)] 1 each PO DAILY #30 tablet oxyCODONE /ACETAMINOPHEN [Percocet 5/325 mg] 1 tab PO Q6HR PRN #10 PRN Reason: Pain valACYclovir [Valtrex] 1,000 mg PO BID #13 tablet
== END 2019-04-10 14:25 | disposition still patient (30) | DRG 394 ==
LOC: ED 07:53 → 3A 12:24 → OBSVTOIN 04-09 10:00
PROVIDERS: ADMIT Internal Medicine; ATTEND Internal Medicine
DX: K61.1 Rectal abscess (principal); C20 Malignant neoplasm of rectum; B20 Human immunodeficiency virus [HIV] disease; C78.5 Secondary malignant neoplasm of large intestine and rectum; F17.200 Nicotine dependence, unspecified, uncomplicated
CPT/HCPCS: 36415; 71045; 74177; 80048; 80076; 81001; 82024; 83690; 83735; 85007; 85025; 85610; 85730; 86850; 86900; 86901; 87040; 87076; 87116; 87186; 87536; 87591; 87901; 93005; 93010; G0378; C9113; J0295; J1644; J2270; J2405; J2543; J3370; J7030; J7040; Q9967

== ENCOUNTER 2020-02-28 14:24 | Emergency (ER) | payer BC ==
[2020-02-28 15:22] VITALS: BP 153/69
--- NOTE | 2020-02-28 15:34 | Emergency Department Report ---
ED General Adult HPI - General Chief complaint: Skin Rash Stated complaint: ANGELA HAND/FEET RASH/CANCER PATIENT Time Seen by Provider: 02/28/20 15:28 Source: patient Mode of arrival: Ambulatory Limitations: No Limitations - History of Present Illness Initial comments: 30-year-old -[place] male patient presents with complaints of painful rash to the hands and feet bilaterally x1 week. He has history of diffuse eczema, HIV (currently on antiretrovirals) in rectal cancer (no longer on chemo or immunosuppressive drugs). He denies any fever/chills/sweats, swollen/painful lymph nodes, dysuria/hematuria/penile discharge, or lesions of the penis. He rates his current pain as a 8/10 in severity. No recent known sick contacts per patient. - Related Data Previous Rx's Medication Instructions Recorded Last Taken Type ALBUTEROL Inhaler(NF) [VENTOLIN 1 puff IH Q4-6H PRN #1 inha 12/28/17 Unknown Rx Inhaler(NF)] Amoxicillin/Potassium Clav 1 each PO BID #14 tablet 04/10/19 Unknown Rx [Augmentin 875-125 Tablet] Bictegrav/Emtricit/Tenofov Ala 1 each PO DAILY #30 tablet 04/10/19 Unknown Rx [Biktarvy 50-200-25 mg (Nf)] oxyCODONE /ACETAMINOPHEN [Percocet 1 tab PO Q6HR PRN #10 04/10/19 Unknown Rx 5/325 mg] valACYclovir [Valtrex] 1,000 mg PO BID #13 tablet 04/10/19 Unknown Rx Acetaminophen/Codeine [Tylenol 1 tab PO Q6H PRN #15 tab 02/28/20 Unknown Rx /Codeine # 3 tab] Naproxen [Naprosyn TAB] 500 mg PO BID PRN #20 tablet 02/28/20 Unknown Rx Prednisone [predniSONE 5 mg (6-Day 5 mg PO .TAPER #1 tab.ds.pk 02/28/20 Unknown Rx Pack, 21 Tabs)] Triamcinolone Acetonide 430 gm TP TID PRN 7 Days #1 02/28/20 Unknown Rx oint...g. Allergies Allergy/AdvReac Type Severity Reaction Status Date / Time No Known Allergies Allergy Verified 09/17/16 16:43 ED Review of Systems ROS: Stated complaint: ANGELA HAND/FEET RASH/CANCER PATIENT Other details as noted in HPI ED Past Medical Hx - Past Medical History Hx Congestive Heart Failure: No Hx Diabetes: No Hx Asthma: Yes Hx COPD: No Hx HIV: Yes Additional medical history: rectal cancer - Surgical History Hx Appendectomy: Yes - Social History Smoking Status: Current Every Day Smoker - Medications Home Medications: Home Medications Medication Instructions Recorded Confirmed Last Taken Type ALBUTEROL Inhaler(NF) [VENTOLIN 1 puff IH Q4-6H PRN #1 inha 12/28/17 04/07/19 Unknown Rx Inhaler(NF)] Amoxicillin/Potassium Clav 1 each PO BID #14 tablet 04/10/19 Unknown Rx [Augmentin 875-125 Tablet] Bictegrav/Emtricit/Tenofov Ala 1 each PO DAILY #30 tablet 04/10/19 Unknown Rx [Biktarvy 50-200-25 mg (Nf)] oxyCODONE /ACETAMINOPHEN [Percocet 1 tab PO Q6HR PRN #10 04/10/19 Unknown Rx 5/325 mg] valACYclovir [Valtrex] 1,000 mg PO BID #13 tablet 04/10/19 Unknown Rx Acetaminophen/Codeine [Tylenol 1 tab PO Q6H PRN #15 tab 02/28/20 Unknown Rx /Codeine # 3 tab] Naproxen [Naprosyn TAB] 500 mg PO BID PRN #20 tablet 02/28/20 Unknown Rx Prednisone [predniSONE 5 mg (6-Day 5 mg PO .TAPER #1 tab.ds.pk 02/28/20 Unknown Rx Pack, 21 Tabs)] Triamcinolone Acetonide 430 gm TP TID PRN 7 Days #1 02/28/20 Unknown Rx oint...g. ED Physical Exam - General Limitations: No Limitations General appearance: alert, in no apparent distress - Head Head exam: Present: atraumatic, normocephalic - Eye Eye exam: Present: normal appearance. Absent: scleral icterus - ENT ENT exam: Present: normal exam - Neck Neck exam: Present: normal inspection - Respiratory Respiratory exam: Present: normal lung sounds bilaterally. Absent: respiratory distress - Cardiovascular Cardiovascular Exam: Present: regular rate, normal rhythm - Back Exam Back exam: Present: full ROM - Neurological Exam Neurological exam: Present: alert, oriented X3 - Psychiatric Psychiatric exam: Present: normal affect, normal mood - Skin Skin exam: Present: warm, dry, intact, rash (Tender papular rash noted bilaterally to hands/palms and feet/soles; no lesions noted in mouth; patient also has diffuse eczematic dry rash; no cellulitic changes noted; no drainage) ED Course Vital Signs 02/28/20 15:19 Temperature 98.1 F Pulse Rate 81 Respiratory 16 Rate Blood Pressure 153/69 O2 Sat by Pulse 98 Oximetry ED Medical Decision Making - Medical Decision Making 30-year-old -[place] male patient presents with complaints of painful rash to the hands and feet bilaterally x1 week. He has history of diffuse eczema, HIV (currently on antiretrovirals) in rectal cancer (no longer on chemo or immunosuppressive drugs). He denies any fever/chills/sweats, swollen/painful lymph nodes, dysuria/hematuria/penile discharge, or lesions of the penis. He rates his current pain as a 8/10 in severity. No recent known sick contacts per patient. He denies symptoms of syphilis. Presentation appears to be consistent with [id number]-ofp-mouth disease. Patient reports ibuprofen is not helping with his pain. We will try naproxen and Tylenol 3. His vitals are normal, he is well- appearing, he is stable for discharge home. Recommend follow-up with primary care doctor in 3 days. Discussed signs and symptoms that should prompt immediate return to the emergency department in great detail with patient who verbalized understanding. Critical care attestation.: If time is entered above; I have spent that time in minutes in the direct care of this critically ill patient, excluding procedure time. ED Disposition Clinical Impression: Hand, foot and mouth disease Eczema Qualifiers: Eczema type: other Qualified Code(s): L30.8 - Other specified dermatitis Disposition: DC-01 TO HOME OR SELFCARE Is pt being admited?: No Condition: Stable Instructions: Hand, Foot, and Mouth Disease, Adult Additional Instructions: If you develop worsening symptoms/symptoms do not improve, fever, painful urination or penile discharge, fever/chills/sweats, swollen/painful lymph nodes, or any other concerning symptoms, seek immediate emergency treatment. Prescriptions: Naproxen [Naprosyn TAB] 500 mg PO BID PRN #20 tablet PRN Reason: Pain, Moderate (4-6) Prednisone [predniSONE 5 mg (6-Day Pack, 21 Tabs)] 5 mg PO .TAPER #1 tab.ds.pk Triamcinolone Acetonide 430 gm TP TID PRN 7 Days #1 oint...g. PRN Reason: Itching Acetaminophen/Codeine [Tylenol /Codeine # 3 tab] 1 tab PO Q6H PRN #15 tab PRN Reason: Pain , Severe (7-10) Referrals: [facility] [Provider Group] - 3-5 Days Forms: Work/School Release Form(ED)
== END 2020-02-28 16:55 | disposition home or self-care (01) ==
LOC: ED 14:24
DX: L30.9 Dermatitis, unspecified (principal); J45.909 Unspecified asthma, uncomplicated; Z21 Asymptomatic human immunodeficiency virus [HIV] infection status; F17.200 Nicotine dependence, unspecified, uncomplicated; Z79.2 Long term (current) use of antibiotics; Z79.899 Other long term (current) drug therapy
CPT/HCPCS: 99281

== ENCOUNTER 2020-06-28 16:37 | Emergency (ER) | payer BC ==
--- NOTE | 2020-06-28 17:12 | Emergency Department Report ---
Stated Complaint: TOOTHACHE Time Seen by Provider: 06/28/20 17:10 - HPI History of Present Illness: Patient is a 30-year-old male presents emergency room with complaints of right upper dental pain that began a month ago but has increased in the last few days. He states he last saw a dentist 3 months ago just for regular cleaning. He states he does not have an appointment with a dentist until 3 weeks. He denies any fever, facial swelling, difficulty swallowing, difficulty breathing, chills, nausea, vomiting, diarrhea. Past medical history of HIV and states he had a reported history of rectal cancer. No allergies medications. Vitals are stable On exam: Non toxic appearing, no acute distress atraumatic, normocephalic normal appearance of the eyes, EOMI, no periorbital edema or ecchymosis moist mucus membranes, there are prior dental caries with fillings present, appears to be a possible early dental decay present to the right upper region, there is no induration or edema of the gumline, no erythema, no signs of necrosis, no fluctuance, there is no drainage, no facial edema, uvula is midline, no uvular edema or deviation, no trismus, no tongue elevation, no submandibular swelling, no muffled voice No arthritis, no accessory muscle use A&O x4, no focal neuro deficit skin is warm, dry, intact Patient is presenting for dentalgia No signs of dental abscess, facial cellulitis, facial abscess or Jake's at this time Patient given the appropriate dental resources and discussed the importance of follow up Discussed regarding precautions Medical screening examination performed there is no bed to life or limb this time MSE screening note: Focused history and physical exam performed. Due to findings the following was ordered: ED Disposition for MSE Clinical Impression: Dentalgia, Dental caries Disposition: Z-07 MED SCREENING EXAM-LEFT Is pt being admited?: No Does the pt Need Aspirin: No Condition: Stable Additional Instructions: may take Tylenol or ibuprofen as needed for discomfort. Gargle with warm salt water 2-3 times a day. Use Orajel [id number]. Follow-up with a dentist. it is very important that you follow-up. Return to emergency room for any new or worsening symptoms or any signs of infection as discussed. Referrals: [facility] [Outside] - 2-3 Days [facility] [Outside] - 2-3 Days Time of Disposition: 17:11 Print Language: MAORI
== END 2020-06-28 18:20 | disposition left against medical advice (07) ==
LOC: ED 16:37